=== PATIENT | female | born 1985 | race Caucasian/White ===

== ENCOUNTER → 2019-08-21 12:36 | Outpatient (BNVA) | payer MEDICARE, MEDICAID, SELFPAY | PROVIDERS: Visit Provider Psychiatry & Neurology Psychiatry | DX: G47.00 Insomnia, unspecified (principal); F39 Unspecified mood [affective] disorder; F43.12 Post-traumatic stress disorder, chronic; E61.1 Iron deficiency; G47.09 Other insomnia | CPT/HCPCS: 99205 ==

== ENCOUNTER → 2020-05-10 12:44 | Outpatient (BNVA) | payer MEDICARE, MEDICAID, SELFPAY | PROVIDERS: Visit Provider Registered Nurse | DX: E61.1 Iron deficiency (principal); Z79.899 Other long term (current) drug therapy; Z03.89 Encounter for observation for other suspected diseases and conditions ruled out; F41.9 Anxiety disorder, unspecified | CPT/HCPCS: 80053; 80306; 82306; 83540; 84443; 85025 ==

== ENCOUNTER 2020-05-19 15:17 | Emergency (ER) | payer MEDICARE, SELFPAY ==
[2020-05-19 15:24] VITALS: BP 104/62; PULSE 85; RESP 15; TEMP 36.6; O2SAT 100; BMI 29.2
[2020-05-19 15:39] VITALS: O2SAT 100
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
--- NOTE | 2020-05-19 16:32 | PC.NURSE ---
pt off unit to CT scan by stretcher at this time
[2020-05-19] MEDS: fentaNYL 50 mcg/mL INJ 2mL 75 MCG IVP (16:40)
[2020-05-19 16:43] VITALS: BP 91/61; PULSE 80; O2SAT 99
[2020-05-19] MEDS: orphenadrine 30 mg/mL Inj 2 mL 60 MG IVP (17:44)
[2020-05-19 17:46] VITALS: BP 92/58; PULSE 78; O2SAT 95
[2020-05-19 18:16] VITALS: BP 92/58; PULSE 78; O2SAT 95
== END 2020-05-19 18:16 | disposition home or self-care (01) ==
PROVIDERS: Emergency Provider Family Medicine
DX: S13.4XXA Sprain of ligaments of cervical spine, initial encounter (principal); S29.012A Strain of muscle and tendon of back wall of thorax, initial encounter; S39.012A Strain of muscle, fascia and tendon of lower back, initial encounter; F17.210 Nicotine dependence, cigarettes, uncomplicated; V89.2XXA Person injured in unspecified motor-vehicle accident, traffic, initial encounter
CPT/HCPCS: 72125; 72128; 72131; 96374; 96375; 99283; J2360; J3010

== ENCOUNTER → 2020-11-25 14:50 | Outpatient (BNVA) | payer MEDICARE, MEDICAID, SELFPAY | PROVIDERS: PCP Family Medicine; Visit Provider Emergency Medicine | DX: R53.83 Other fatigue (principal); E61.1 Iron deficiency; B35.1 Tinea unguium; L60.0 Ingrowing nail; Z79.899 Other long term (current) drug therapy | CPT/HCPCS: 82652; 83550; 84443; 85025 ==

== ENCOUNTER → 2020-12-30 09:10 | Outpatient (BNVA) | payer MEDICARE, MEDICAID, SELFPAY | PROVIDERS: PCP Family Medicine; Referring Provider Family Medicine; Visit Provider Anesthesiology Pain Medicine | DX: M54.50 Low back pain, unspecified (principal); F41.9 Anxiety disorder, unspecified; Z79.891 Long term (current) use of opiate analgesic | CPT/HCPCS: 99204 ==

== ENCOUNTER 2021-01-12 13:55 | Outpatient (CLI) | payer MEDICARE, MEDICAID, SELFPAY ==
--- NOTE | 2021-01-12 13:00 | XR_ITS ---
WS: [id number] LUMBAR SPINE: 3 VIEWS TECHNIQUE: AP, lateral and L5-S1 spot. HISTORY: M47.816 - Spondylosis without myelopathy or radiculopathy... COMPARISON: 05/19/2020. Lumbar vertebra are normally aligned. Very mild anterior wedging of L1 and L4. This mild anterior wedging has been previously described. No new fractures. No progression of fractures. Pedicles are all identified. No foraminal stenosis. SI joints are symmetric bilaterally. No soft tissue abnormalities. XR/XR lumbar spine min 4V [id number] IMPRESSION: 1. Stable very mild anterior wedging of L1 and L4. 2. Otherwise negative. No significant facet arthritis.
== END 2021-01-12 13:56 | disposition home or self-care (01) ==
PROVIDERS: PCP Family Medicine; Visit Provider Anesthesiology Pain Medicine
DX: M47.816 Spondylosis without myelopathy or radiculopathy, lumbar region (principal); M48.56XA Collapsed vertebra, not elsewhere classified, lumbar region, initial encounter for fracture
CPT/HCPCS: 72110

== ENCOUNTER → 2021-01-26 09:08 | Outpatient (BNVA) | payer MEDICARE, MEDICAID, SELFPAY | PROVIDERS: PCP Family Medicine; Visit Provider Anesthesiology Pain Medicine | DX: G89.29 Other chronic pain (principal); M54.50 Low back pain, unspecified | CPT/HCPCS: 99214 ==

== ENCOUNTER 2023-12-22 04:01 | Inpatient (IN) | payer MEDICARE, MEDICAID, SELFPAY ==
[2023-12-22] VITALS (51 sets, daily range): BP systolic 85–121; BP diastolic 52–96; PULSE 63–112; RESP 12–24; TEMP 36.3–37.5; O2SAT 22–100; BMI 25.0; BMI 23.6
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
[2023-12-22] MEDS: sodium chloride 0.9% 1,000 ML 999 ML IV (04:29)
[2023-12-22] MEDS: SUMAtriptan 6 mg/0.5 mL SDV SUBCUT (04:29)
[2023-12-22 04:35] LABS: HCG Qualitative Urine. Negative (Negative)
[2023-12-22 04:45] LABS: Bacteria Urine 1+ /hpf; Hyaline Casts Urine 2.46 /lpf; RBC Urine 0-2 /hpf (0-2); WBC Urine 0-5 /hpf (0-5)
[2023-12-22 04:47] LABS: Amphetamines Screen Urine Negative (Negative); Barbiturates Screen Urine Negative (Negative); Benzodiazepines Screen Urine Positive (Negative); Cocaine Screen Urine Negative (Negative); Opiate Screen Urine Negative (Negative); PCP Screen Urine Negative (Negative); THC Screen Urine Positive (Negative)
[2023-12-22 05:02] LABS: Basophils % 0.3 %; Eosinophils % 0.1 %; Hematocrit 41.4 % (36-47); Lymphocytes # 1.3 10^3/uL (0.8-4.8); Lymphocytes % 9.4 %; Mean Corpuscular HGB Conc 33.6 g/dL (30-55); Mean Corpuscular Hemoglobin 30.3 pg (27-33); Mean Corpuscular Volume 90.2 fl (85-98); Mean Platelet Volume 10.6 fL (7.4-10.4); Monocytes # 0.5 10^3/uL (0.2-0.9); Monocytes % 3.5 %; Neutrophils # 11.96 10^3/uL (1.8-7.7); Neutrophils % 86.3 %; Nucleated Red Blood Cells % 0 %; Platelet Count 280 10^3/cmm (157-399); Red Blood Count 4.59 10^6/uL (3.85-5.65); Red Cell Distribution Width 15.3 % (12.1-15.1); White Blood Count 13.86 10^3/uL (3.29-11.43)
[2023-12-22 05:15] LABS: Add Urine Microscopic? YES; Bilirubin Urine Negative (Negative); Blood Urine Negative (Negative); Glucose Urine UA Negative (Normal); Ketones Urine 2+ (Negative); Leukocyte Esterase Urine Negative (Negative); Nitrate Urine Negative (Negative); Protein Urine 1+ (Negative); Specific Gravity, Urine 1.023 (1.005-1.030); Urine Appearance Clear (CLEAR); Urine Color Yellow (Yellow); pH Urine 5.5 (5-7)
[2023-12-22 05:24] LABS: Alanine Aminotransferase 12 U/L (0-33); Albumin Level 4.2 g/dL (3.5-5.2); Alkaline Phosphatase 82 U/L (35-105); Anion Gap 18.9 (5-19); Aspartate Amino Transferase 22 U/L (0-32); Blood Urea Nitrogen 18 mg/dL (6-20); Calcium 7.6 mg/dL (8.5-10.5); Carbon Dioxide 15 mmol/L (22-29); Chloride 111 mmol/L (98-107); Creatinine Clr Calc Pharmacy 67.2315; Globulin 2.3 g/dL (1.3-4.6); Glomerular Filtration Rate 55.6 mL/min (90-130); Glucose 105 mg/dL (65-115); Osmolality Calculated 294 mOsm/kg (285-295); Potassium 3.9 mmol/L (3.5-5.1); Sodium 141 mmol/L (136-145); Total Bilirubin 0.2 mg/dL (0.15-1.2); Total Protein 6.5 g/dL (6.6-8.7)
[2023-12-22 05:27] LABS: Acetaminophen < 5.0 ug/mL (10-30); Alcohol Level < 10 mg/dL (0-10)
[2023-12-22 05:30] LABS: Salicylate 55.5 mg/dL (3-10)
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
[2023-12-22 06:33] LABS: ABG PH Result 7.38 (7.35-7.45); Alveolar-Arterial Oxygen Gradi 3.2 mmHg (5-10); Base Excess ABG -8.1 mmol/L (-2.0-2.0); Blood Gas Operator Identificat SAM; Blood Gas Sample Site Brachial, right; Blood Gas Sample Type Arterial; Carboxyhemoglobin 0.8 %THgb (0.4-20.1); HCO3 ABG 15.4 mmol/L (22-26); HGB O2 Sat 94.9 % (95-100); Ionized Calcium Level - ABG 1.1 mmol/L (1.1-1.4); Methemoglobin 1.4 % (0.4-1.5); PO2 ABG 91.4 mmHg (80.0-100.0); Potassium Level - ABG 3.2 mmol/L (3.5-5.0); Total Hemoglobin 12.7 g/dL (12-16)
--- NOTE | 2023-12-22 06:35 | PC.NURSE ---
RN called poison control. Instructions were to start dialysis, order abg, monitor potassium every 4-6 hours, start dextrose 10%. Poison control faxed some instructions, Dr reviewed and placed in pt chart.
[2023-12-22] MEDS: lactated ringers 500 ML 999 ML IV (07:29)
--- NOTE | 2023-12-22 07:30 | PC.NURSE ---
pt from er here 2 amps bicarb , preparing for dialysis cath permit done time out right groin area bicarb gtt started
[2023-12-22] MEDS: pantoprazole 40 mg SDV IVP ×2 (07:31→17:56)
[2023-12-22] MEDS: sodium bicarbonate 8.4% 1 mEq/mL 50mL Syr 100 MEQ IVP (07:45)
--- NOTE | 2023-12-22 07:54 | PM.CONSULT ---
Providers/Reason For Consult Consulting Physician/Specialty*: [facility] /Nephrology Reason for Consult*: TAMANNA, salicylate toxicity Attending Physician: Adryan Manuel MD Primary Care Provider: Jame Hobbs History of Present Illness History of Present Illness Krissy Simon is a 38 year old female -year-old female with past medical history of depression posttraumatic stress disorder, chronic back pain presented to the emergency department due to generalized weakness, malaise, nausea vomiting decreased p.o. intake and generalized feeling of unwell. Also complained of having headaches. On further questioning she reported taking about 15-20 aspirin pills per day over the last few months and also taking BC powder for pains and aches. In the emergency department she was noted to be tachycardic, lab data significant for TAMANNA with a creatinine of 1.1 metabolic acidosis with a bicarbonate of 15. And patient salicylate level was elevated at 55. Poison control was called from the emergency department who recommended dialysis. Patient has temporary HD catheter placed and currently getting dialysis. Unable to provide further history to me at this time. Patient denied having any suicidal ideation Review of Systems Narrative: negative Medications/Allergies Home Medications Medication Instructions Recorded Confirmed Last Taken Type sumatriptan succinate 50 mg tablet 50 mg PO Q2H PRN migraine headache 08/26/20 11/07/21 Unknown Rx (Imitrex) #9 tabs gabapentin 300 mg capsule 300 mg PO BID #60 caps 11/07/21 11/07/21 Unknown Rx mirtazapine 15 mg tablet (Remeron) 15 mg PO .HS #30 tabs 11/07/21 11/07/21 Unknown Rx Allergies Allergy/AdvReac Type Severity Reaction Status Date / Time NSAIDS (Non-Steroidal Allergy Heart Verified 11/07/21 12:59 Anti-Inflamma flutters Current Medications Generic Name Dose Route Start Last Admin Trade Name Freq PRN Reason Stop Dose Admin Pantoprazole Sodium 40 mg 12/22/23 07:24 12/22/23 07:31 Pantoprazole 40 Mg Sdv IVP 40 mg Q12H HYUN Administration PFSH Acute PFSH: Medical History Benzodiazepine dependence Anxiety Depression Migraine Iron deficiency Social History Smoking and tobacco/nicotine status: current every day tobacco/nicotine user cigarettes Packs smoked per day: 0.25 Years cigarettes smoked: 20 Quit status (tobacco/nicotine): has tried quititng Alcohol intake: never Substance/Drug Use: former Date of last use: 2019 Current gender identity: Female Vitals/I&O/Wt Last Vital Signs Temp 97.6 F 12/22/23 07:30 Pulse 100 12/22/23 07:35 Resp 19 H 12/22/23 07:35 BP 88/75 12/22/23 07:35 Pulse Ox 97 12/22/23 07:35 O2 Del Method Room Air 12/22/23 07:35 12/21/23 12/22/23 12/22/23 22:59 06:59 14:59 Intake Total 1000 / 1000 Balance 1000 / 1000 Weight last 48 hrs Weight 64.41 kg Weight 68.039 kg Physical Exam Narrative: awake , alert Heent S1S2 RRR per report Lungs clear per report No edema Data 12/22/23 04:58 12/22/23 04:58 A&P Assessment and plan (1) Salicylate overdose: 1. Acute salicylate overdose: Salicylate level was 55 on presentation, plan for emergent HD, femoral catheter placed and HD initiated, continue to monitor salicylate levels and likely will repeat HD tomorrow. 2. Respiratory alkalosis and metabolic acidosis likely from salicylate overdose, plan as above-continue bicarbonate drip 3. History of depression 4. TAMANNA: Mild, due to poor p.o. intake, NSAIDs and salicylate overdose-continue IV fluids Patient evaluated using audiovisual cart. Time spent 40 minutes. Qualifiers: Encounter type: initial encounter Injury intent: accidental or unintentional Qualified Code(s): T39.091A - Poisoning by salicylates, accidental (unintentional), initial encounter Consult Attestations Medical Necessity Statement: per marleny Coding Level of Care Code Acute Code for [facility] Fwd Diagnoses Salicylate overdose T39.091A Encounter type: initial encounter Injury intent: accidental or unintentional
[2023-12-22] MEDS: sodium bicarbonate 150 MEQ in dextrose 5% 1,000 ML 100 MEQ IV (08:15)
[2023-12-22] MEDS: lidocaine 2% INJ 20 mL 10 ML INJECTION ×2 (08:35→09:37)
--- NOTE | 2023-12-22 08:44 | P.CONIM_ITS ---
Providers/Reason For Consult 2 Consulting Physician/Specialty*: General Surgery Reason for Consult*: Need for dialysis Attending Physician: Adryan Manuel MD Primary Care Provider: Jame Hobbs History of Present Illness History of Present Illness Krissy Simon is a 38 year old female who presented to the ED with salicylate toxicity, after discussion with poison control patient was recommended to proceed with dialysis. On evaluation of the bedside she was alert and oriented no significant mental status changes at this time she did have some episodes of vomit does not complain of abdominal pain does have a headache. Review of Systems 2 General: Reports: 10 or more systems reviewed and unremarkable except in HPI and below Medications/Allergies Home Medications Medication Instructions Recorded Confirmed Last Taken Type sumatriptan succinate 50 mg tablet 50 mg PO Q2H PRN migraine headache 08/26/20 11/07/21 Unknown Rx (Imitrex) #9 tabs gabapentin 300 mg capsule 300 mg PO BID #60 caps 11/07/21 11/07/21 Unknown Rx mirtazapine 15 mg tablet (Remeron) 15 mg PO .HS #30 tabs 11/07/21 11/07/21 Unknown Rx Allergies Allergy/AdvReac Type Severity Reaction Status Date / Time NSAIDS (Non-Steroidal Allergy Heart Verified 11/07/21 12:59 Anti-Inflamma flutters Current Medications Generic Name Dose Route Start Last Admin Trade Name Freq PRN Reason Stop Dose Admin Sodium Bicarbonate 150 meq/ 1,150 mls @ 100 mls/hr 12/22/23 08:30 12/22/23 08:15 Dextrose IV 100 mls/hr .[id number] HYUN Administration Lidocaine HCl 10 ml 12/22/23 08:45 12/22/23 08:35 Lidocaine 2% Inj 20 Ml INJECTION 12/22/23 08:46 10 ml ONCE ONE Administration Protocol Pantoprazole Sodium 40 mg 12/22/23 07:24 12/22/23 07:31 Pantoprazole 40 Mg Sdv IVP 40 mg Q12H HYUN Administration PFSH Acute 2 PFSH: Medical History Benzodiazepine dependence Anxiety Depression Migraine Iron deficiency Social History Smoking and tobacco/nicotine status: current every day tobacco/nicotine user cigarettes Packs smoked per day: 0.25 Years cigarettes smoked: 20 Quit status (tobacco/nicotine): has tried quititng Alcohol intake: never Substance/Drug Use: former Date of last use: 2019 Current gender identity: Female Vitals/I&O/Wt Last Vital Signs Temp 97.3 F L 12/22/23 08:00 Pulse 104 H 12/22/23 08:00 Resp 17 12/22/23 08:00 BP 111/68 12/22/23 08:00 Pulse Ox 98 12/22/23 08:00 O2 Del Method Room Air 12/22/23 07:41 12/21/23 12/22/23 12/22/23 22:59 06:59 14:59 Intake Total 1000 / 1000 Balance 1000 / 1000 Weight last 48 hrs Weight 142 lb Weight 150 lb Physical Exam 2 Narrative: General : Patient is well developed , no acute distress, oriented x3 Head : Normal cephalic, a-traumatic. Nose : Mucous membranes are without erythema. Lungs : Equal chest rise bilaterally, no use of accessory muscles, trachea is midline. CV : Rate and rhythm are normal. Abdomen : Soft, ND, NT, no g/r/m Extremities : No edema. Upper extremities are normal bilaterally. Back : non-tender to palpation, no CVA tenderness. Data 12/22/23 04:58 12/22/23 04:58 A&P Assessment and plan (1) Salicylate overdose: Qualifiers: Encounter type: initial encounter Injury intent: accidental or unintentional Qualified Code(s): T39.091A - Poisoning by salicylates, accidental (unintentional), initial encounter Plan After complete history, physical examination and review of all available clinical data I decided to offer the patient placement of a temporary dialysis catheter. I discussed all risk benefits including injury to surrounding structures, need to catheter replacement, bloodstream infection, localized infection, bleeding, pneumothorax, injury to the intra-abdominal viscera in the case of a femoral catheter, cannulation of the artery rather than the pain, nerve damage. Patient shows understanding agrees with the procedure. I did right femoral vein dialysis catheter placement, this was done without complications patient remained stable in the ICU after the procedure. -Patient can proceed with dialysis as needed. Coding Level of Care Code 27985 Diagnoses Salicylate overdose T39.091A Encounter type: initial encounter Injury intent: accidental or unintentional
--- NOTE | 2023-12-22 08:48 | PM.ACPR ---
Procedure/Consent Time out: Time Out Performed: Yes Consent: Consent for Procedure: Consent obtained from patient, Risks & Benefits reviewed and Agrees to proceed with procedure Procedure Narrative: She was placed in a supine position, timeout was conducted. The right groin was prepped and draped in usual sterile fashion as this was noted to be a suitable target for cannulation. I then proceeded to identify the right femoral vein, local anesthesia was infiltrated on top, I then cannulated the right femoral vein with 18-gauge needle under ultrasound guidance, and a wire was advanced. The needle was removed leaving the wire in place. Position of the wire was ensured with ultrasound guidance. 5 mm incision was made on the level of the wire insertion site on the skin, the tract was dilated with sequential sizes of dilators. The catheter was then advanced into the pain over the wire, the catheter was left in place and the wire was removed. Patency of both of the lumens were tested with saline and both lumens were noted to be drawing and flushing with no problems. The catheter was then fixed to the tissue with number was held. Sterile dressing was applied. At the end of the procedure counts were correct the patient tolerated well the procedure and remained in the ICU in stable condition Acute Procedures Epistaxis Control: Time out performed: Yes
[2023-12-22] MEDS: heparin, porcine 1,000 unit/mL INJ 10 mL 1000 UNIT IV (09:01)
--- NOTE | 2023-12-22 09:07 | W.PM.EVENTAC ---
Event Note Event Note: Patient is awake and alert Getting temporary dialysis catheter She will be dialyzed today I have added bicarb drip Continue IV fluids Repeat BMP after dialysis today She is acidotic Not confused at all No focal deficit Hemodynamically stable
[2023-12-22] MEDS: oxyCODONE 5 mg IR Tab/Cap PO ×3 (09:31→22:02)
[2023-12-22] MEDS: heparin 5,000 unit/mL INJ 1 mL 5000 UNIT SUBCUT ×2 (09:31→22:03)
[2023-12-22] MEDS: albumin 12.5 GM/50 ML VIAL IV (09:51)
[2023-12-22 10:04] LABS: Hepatitis B Core AB, Total Non-Reactive (Nonreactive); Hepatitis B Surface AB < 3.5 (11.5-1000); Hepatitis B Surface Antigen Non-Reactive (Nonreactive)
[2023-12-22] MEDS: SUMAtriptan 25 mg Tablet 50 MG PO (11:50)
--- NOTE | 2023-12-22 13:10 | PC.NURSE ---
continued nausea and head ache imetrex po given recieving dialysis now complete lab ordered post
--- NOTE | 2023-12-22 13:15 | PC.NURSE ---
Dressing on left lower extremity changed at this time. applied 4x4, betadine, stocknet dressing, and coband. yellow drainage noted. pt tolerated well.
[2023-12-22 13:46] LABS: Anion Gap 18.6 (5-19); Blood Urea Nitrogen 5 mg/dL (6-20); Calcium 8.2 mg/dL (8.5-10.5); Carbon Dioxide 25 mmol/L (22-29); Chloride 100 mmol/L (98-107); Creatinine Clr Calc Pharmacy 144.9817; Glomerular Filtration Rate 138.1 mL/min (90-130); Glucose 157 mg/dL (65-115); Osmolality Calculated 293 mOsm/kg (285-295); Salicylate 13.5 mg/dL (3-10); Sodium 141 mmol/L (136-145)
[2023-12-22 13:49] LABS: Potassium 2.6 mmol/L (3.5-5.1)
[2023-12-22] MEDS: ondansetron 2 mg/ML SDV 2 mL 4 MG IVP ×2 (14:13→22:01)
[2023-12-22] MEDS: potassium chloride premix 100 ML 25 MEQ IV ×2 (14:13→17:56)
[2023-12-22 14:29] LABS: Salicylate 11.8 mg/dL (3-10)
[2023-12-22] MEDS: lactated ringers 1,000 ML 75 ML IV (16:28)
--- NOTE | 2023-12-22 18:16 | PC.NURSE ---
pt continues to c/o pain and nausea , states i can not take oxycodone , message sent to doctor has had total 5 to 6 emesis today
[2023-12-22] MEDS: TRAMadol 50 mg Tablet PO (18:49)
[2023-12-22] MEDS: ALPRAZolam 0.5 mg Tablet 1 MG PO (21:16)
[2023-12-22 21:46] LABS: Salicylate 3.8 mg/dL (3-10)
[2023-12-22 22:00] LABS: Alanine Aminotransferase 11 U/L (0-33); Albumin Level 4.1 g/dL (3.5-5.2); Alkaline Phosphatase 74 U/L (35-105); Anion Gap 21.5 (5-19); Aspartate Amino Transferase 19 U/L (0-32); Blood Urea Nitrogen 8 mg/dL (6-20); Calcium 8.2 mg/dL (8.5-10.5); Carbon Dioxide 21 mmol/L (22-29); Chloride 101 mmol/L (98-107); Creatinine Clr Calc Pharmacy 90.6135; Globulin 2.8 g/dL (1.3-4.6); Glomerular Filtration Rate 80.3 mL/min (90-130); Glucose 110 mg/dL (65-115); Osmolality Calculated 289 mOsm/kg (285-295); Potassium 3.5 mmol/L (3.5-5.1); Sodium 140 mmol/L (136-145); Total Bilirubin 0.3 mg/dL (0.15-1.2); Total Protein 6.9 g/dL (6.6-8.7)
[2023-12-22] MEDS: mirtazapine 15 mg Tablet 30 MG PO (22:02)
[2023-12-23] VITALS (27 sets, daily range): BP systolic 91–132; BP diastolic 54–78; PULSE 59–97; RESP 10–28; TEMP 36.3–36.9; O2SAT 96–97
--- NOTE | 2023-12-23 01:39 | PC.NURSE ---
Patient tearful demanding kurtz catheter to be removed. Patient stable to use bed mckee or bsc. Catheter removed after balloon deflated, tip intact.
[2023-12-23] MEDS: lactated ringers 1,000 ML 75 ML IV (05:51)
[2023-12-23] MEDS: ondansetron 2 mg/ML SDV 2 mL 4 MG IVP (05:52)
[2023-12-23] MEDS: oxyCODONE 5 mg IR Tab/Cap PO (05:52)
[2023-12-23] MEDS: pantoprazole 40 mg SDV IVP (06:06)
[2023-12-23 06:43] LABS: Alanine Aminotransferase 11 U/L (0-33); Albumin Level 3.9 g/dL (3.5-5.2); Alkaline Phosphatase 64 U/L (35-105); Anion Gap 15.2 (5-19); Aspartate Amino Transferase 16 U/L (0-32); Blood Urea Nitrogen 9 mg/dL (6-20); Calcium 8.5 mg/dL (8.5-10.5); Carbon Dioxide 22 mmol/L (22-29); Chloride 98 mmol/L (98-107); Creatinine Clr Calc Pharmacy 90.3125; Glomerular Filtration Rate 80.3 mL/min (90-130); Glucose 89 mg/dL (65-115); Osmolality Calculated 272 mOsm/kg (285-295); Potassium 3.2 mmol/L (3.5-5.1); Sodium 132 mmol/L (136-145); Total Bilirubin 0.2 mg/dL (0.15-1.2); Total Protein 5.9 g/dL (6.6-8.7)
[2023-12-23 06:45] LABS: Basophils % 0.2 %; Eosinophils % 0.2 %; Hematocrit 35.1 % (36-47); Lymphocytes # 2.2 10^3/uL (0.8-4.8); Lymphocytes % 24.6 %; Mean Corpuscular HGB Conc 31.9 g/dL (30-55); Mean Corpuscular Hemoglobin 29.9 pg (27-33); Mean Corpuscular Volume 93.6 fl (85-98); Mean Platelet Volume 11.1 fL (7.4-10.4); Monocytes # 0.8 10^3/uL (0.2-0.9); Monocytes % 8.8 %; Neutrophils # 5.79 10^3/uL (1.8-7.7); Neutrophils % 65.6 %; Nucleated Red Blood Cells % 0 %; Platelet Count 259 10^3/cmm (157-399); Red Blood Count 3.75 10^6/uL (3.85-5.65); Red Cell Distribution Width 15.2 % (12.1-15.1); White Blood Count 8.83 10^3/uL (3.29-11.43)
[2023-12-23 06:57] LABS: Salicylate < 0.3 mg/dL (3-10)
--- NOTE | 2023-12-23 07:08 | P.PN_ITS ---
Subjective 2 Subjective: Seen and examined. No shortness of breath. Still with nausea and vomiting. And has headaches states she gets migraines. She states she took a lot of aspirin as she has 2 pains from an implant. She is not suicidal she states. Medications: Reviewed: Yes Medication Review Details: Current Medications Acetaminophen (Acetaminophen 325 Mg Tablet) 650 mg PO Q6H PRN PRN Reason: Mild/Mod Pain Or Temp >/= 101 Alprazolam (Alprazolam 0.5 Mg Tablet) 1 mg PO TID PRN PRN Reason: ANXIETY Last Admin: 12/22/23 21:16 Dose: 1 mg Heparin Sodium (Porcine) (Heparin 5,000 Unit/Ml Inj 1 Ml) 5,000 unit SUBCUT Q12H [facility] Last Admin: 12/22/23 22:03 Dose: 5,000 unit Dextrose (D10w) 250 mls @ 1,000 mls/hr IV PRN PRN PRN Reason: HYPOGLYCEMIA Sodium Chloride (Sodium Chloride 0.9%) 1,000 mls @ 0 mls/hr IV .Q0M PRN PRN Reason: hypotension or symptomatic Albumin Human (Albumin) 12.5 gm in 50 mls @ 60 mls/hr IV PRN PRN PRN Reason: Hypotension and/or symptomatic Last Infusion: 12/22/23 10:27 Dose: Infused Lactated Ringer's (Lactated Ringers) 1,000 mls @ 75 mls/hr IV .[id number] [facility] Last Admin: 12/23/23 05:51 Dose: 75 mls/hr Mirtazapine (Mirtazapine 15 Mg Tablet) 30 mg PO BEDTIME [facility] Last Admin: 12/22/23 22:02 Dose: 30 mg Ondansetron HCl (Ondansetron 2 Mg/Ml Sdv 2 Ml) 4 mg IVP Q8H PRN PRN Reason: vomiting, or N/V if npo Last Admin: 12/23/23 05:52 Dose: 4 mg Oxycodone HCl (Oxycodone 5 Mg Ir Tab/Cap) 5 mg PO Q6H PRN PRN Reason: MODERATE PAIN Last Admin: 12/23/23 05:52 Dose: 5 mg Pantoprazole Sodium (Pantoprazole 40 Mg Sdv) 40 mg IVP Q12H [facility] Last Admin: 12/23/23 06:06 Dose: 40 mg Sumatriptan Succinate (Sumatriptan 25 Mg Tablet) 50 mg PO Q2H PRN PRN Reason: migraine headache Last Admin: 12/22/23 11:50 Dose: 50 mg Vitals/I&O/Wt Last Vital Signs Temp 98.4 F 12/23/23 00:30 Pulse 83 12/23/23 06:00 Resp 18 12/23/23 05:52 BP 118/78 12/23/23 04:00 Pulse Ox 97 12/23/23 05:52 O2 Del Method Room Air 12/23/23 04:00 12/22/23 12/23/23 12/23/23 22:59 06:59 14:59 Intake Total 1442.917 / 2642.917 1000 / 3642.917 Output Total 1000 / 2771 200 / 2971 Balance 442.917 / -128.083 800 / 671.917 Weight last 48 hrs Weight 64.5 kg Weight 65 kg Weight 64.41 kg Weight 68.039 kg Physical Exam 2 Narrative: Vital signs stable in bed no apparent distress. HEENT normocephalic atraumatic. Neck is supple no JVP no carotid bruits. Lungs are clear to auscultation. Heart is regular without rubs or gallops. Abdomen is soft positive bowel sounds extremities have no significant edema no clubbing. Neurologically awake and alert oriented x 3. ext no edema. + rt femoral dialysis catheter Urinary Catheter Management: [place]: Cath Placed During This Visit: yes Reason for Continuing Indwelling Catheter: Accurate Measurement of Urinary Output in Critically Ill Patients Urinary Catheter Date of Insertion: 12/22/23 Urinary Catheter Time of Insertion: 09:27 Data 12/23/23 06:10 12/23/23 06:10 A&P Assessment and plan (1) Salicylate overdose: 38-year-old lady here with salicylate toxicity. Salicylate level is now undetectable after dialysis yesterday. Repeat salicylate level at noon to ensure that it is really low. Salicylate normal remains normal she does not need any further dialysis. Replace potassium. I advised the patient not to use NSAIDs or salicylates or overdose on medications and to try to deal with her tooth problems. Blood pressure acceptable Medications reviewed Qualifiers: Encounter type: initial encounter Injury intent: accidental or unintentional Qualified Code(s): T39.091A - Poisoning by salicylates, accidental (unintentional), initial encounter Plan See above. No further salicylate use. Check repeat salicylate level at noon. The salicylate level remains normal DC dialysis catheter Attestations 2 Medical Necessity Statement*: Per hospitalist. Time Spent in Patient Care: 16 - 35 minutes (>than 50% of time sp ent in counselling and/or direct pt care on unit) . Coding [facility] T39.091A Encounter type: initial encounter Injury intent: accidental or unintentional
[2023-12-23] MEDS: heparin 5,000 unit/mL INJ 1 mL 5000 UNIT SUBCUT (08:59)
[2023-12-23] MEDS: gabapentin 300 mg Capsule PO (10:42)
[2023-12-23] MEDS: ALPRAZolam 0.5 mg Tablet 1 MG PO (10:42)
--- NOTE | 2023-12-23 13:10 | PM.DCS ---
Discharge Providers Date of Admission: 12/22/23 06:24 Date of Discharge: December 23, 2023 Attending Provider at Admission: Sumit Jarrell Attending Provider at Discharge: Adryan Manuel MD Primary Care Provider: Jame Hobbs Diagnoses at Discharge Discharge Diagnosis (1) Salicylate overdose: Status: Acute Qualifiers: Encounter type: initial encounter Injury intent: accidental or unintentional Qualified Code(s): T39.091A - Poisoning by salicylates, accidental (unintentional), initial encounter Reason for Visit Reason for Visit: N/V/D Hospital Course Hospital Course 38-year-old female who presented to the hospital with vomiting generalized weakness patient was diagnosed with salicylate poisoning because she was taking 15 to 20 tablets of aspirin on daily basis for her dental pain. Patient has seen her dentist and has been referred to oromaxillary surgeon in [place]. In the hospital with her levels were above 55, Poison control was contacted, immediate steps were taken to put her on predialysis catheter and dialyze her, levels improved, she remained hemodynamically stable, her vomiting has improved, she still endorsing nausea, no signs of abnormal transaminases, no signs of acidosis, electrolytes replenished. No leukocytosis. Patient is not suicidal. She required opioids and Imitrex for her headache. I do believe she has NSAID withdrawal related pain along migraine. Physical Exam Narrative: Pleasant young female Pleasant cooperative Nonfocal neuroexam S1, S2 On room air Urinary Catheter Management: [place]: Cath Placed During This Visit: yes Reason for Continuing Indwelling Catheter: Accurate Measurement of Urinary Output in Critically Ill Patients Urinary Catheter Date of Insertion: 12/22/23 Urinary Catheter Time of Insertion: 09:27 Discharge Data Studies Completed and Pending Completed Studies During Hospitalization Category Date Time Status XR chest 1V portable [id number] Stat Exams 12/22/23 04:09 Completed Pending at discharge Category Date Time Status Complete Blood Count w/Auto AM LABS Lab 12/24/23 04:00 Ordered Complete Blood Count w/Auto AM LABS Lab 12/25/23 04:00 Ordered Comprehensive Metabolic Panel AM LABS Lab 12/24/23 04:00 Ordered Comprehensive Metabolic Panel AM LABS Lab 12/25/23 04:00 Ordered Salicylate Stat Lab 12/23/23 12:45 Ordered Radiology Impressions Chest X-Ray 12/22/23 04:09 IMPRESSION: No acute findings. Laboratory Results WBC 8.83 10^3/uL (3.29-11.43) 12/23/23 06:10 RBC 3.75 10^6/uL (3.85-5.65) L 12/23/23 06:10 Hgb 11.20 g/dL (11.27-16.99) L 12/23/23 06:10 Hct 35.1 % (36-47) L 12/23/23 06:10 MCV 93.6 fl (85-98) 12/23/23 06:10 MCH 29.9 pg (27-33) 12/23/23 06:10 MCHC 31.9 g/dL (30-55) D 12/23/23 06:10 RDW 15.2 % (12.1-15.1) H 12/23/23 06:10 Plt Count 259 10^3/cmm (157-399) 12/23/23 06:10 MPV 11.1 fL (7.4-10.4) H 12/23/23 06:10 Neut % (Auto) 65.6 % 12/23/23 06:10 Lymph % (Auto) 24.6 % 12/23/23 06:10 [place] % (Auto) 8.8 % 12/23/23 06:10 Eos % (Auto) 0.2 % 12/23/23 06:10 Baso % (Auto) 0.2 % 12/23/23 06:10 Neut # (Auto) 5.79 10^3/uL (1.8-7.7) 12/23/23 06:10 Lymph # (Auto) 2.2 10^3/uL (0.8-4.8) 12/23/23 06:10 [place] # (Auto) 0.8 10^3/uL (0.2-0.9) 12/23/23 06:10 Eos # (Auto) 0.0 10^3/uL (0.0-0.8) 12/23/23 06:10 Baso # (Auto) 0.0 10^3/uL (0.0-0.1) 12/23/23 06:10 Nucleated RBC % (auto) 0 % 12/23/23 06:10 Nucleated RBCs # 0.0 /100WBC 12/23/23 06:10 Specimen Type Arterial 12/22/23 06:22 Sample Site Brachial, right 12/22/23 06:22 ABG pH 7.38 (7.35-7.45) 12/22/23 06:22 ABG pCO2 26.0 mmHg (35-45) L 12/22/23 06:22 ABG pO2 91.4 mmHg (80.0-100.0) 12/22/23 06:22 ABG HCO3 15.4 mmol/L (22-26) L 12/22/23 06:22 ABG O2 Saturation 97.0 12/22/23 06:22 ABG Base Excess -8.1 mmol/L (-2.0-2.0) L 12/22/23 06:22 Abran Test N/a 12/22/23 06:22 A-a O2 Gradient 3.2 mmHg (5-10) L 12/22/23 06:22 Hematocrit 39.0 % (37-47) 12/22/23 06:22 Hgb O2 Saturation 94.9 % (95-100) L 12/22/23 06:22 Carboxyhemoglobin 0.8 %THgb (0.4-20.1) 12/22/23 06:22 Methemoglobin 1.4 % (0.4-1.5) 12/22/23 06:22 Total Hemoglobin 12.7 g/dL (12-16) 12/22/23 06:22 Sodium 138.0 mmol/L (131-143) 12/22/23 06:22 Potassium 3.2 mmol/L (3.5-5.0) L 12/22/23 06:22 Glucose 260.0 mg/dL (70-115) H 12/22/23 06:22 Ionized Calcium 1.1 mmol/L (1.1-1.4) 12/22/23 06:22 O2 Delivery Device None 12/22/23 06:22 [employer] [place] [employer] ID Jorge L 12/22/23 06:22 Sodium 132 mmol/L (136-145) L 12/23/23 06:10 Potassium 3.2 mmol/L (3.5-5.1) L 12/23/23 06:10 Chloride 98 mmol/L (98-107) 12/23/23 06:10 Carbon Dioxide 22 mmol/L (22-29) 12/23/23 06:10 Anion Gap 15.2 (5-19) 12/23/23 06:10 BUN 9 mg/dL (6-20) 12/23/23 06:10 Creatinine 0.8 mg/dL (0.5-0.9) 12/23/23 06:10 GFR Calculation 80.3 mL/min (90-130) L 12/23/23 06:10 Glucose 89 mg/dL (65-115) 12/23/23 06:10 Calculated Osmolality 272 mOsm/kg (285-295) L 12/23/23 06:10 Calcium 8.5 mg/dL (8.5-10.5) 12/23/23 06:10 Magnesium 2.0 mg/dL (1.7-2.3) 12/22/23 04:58 Total Bilirubin 0.2 mg/dL (0.15-1.2) 12/23/23 06:10 AST 16 U/L (0-32) 12/23/23 06:10 ALT 11 U/L (0-33) 12/23/23 06:10 Alkaline Phosphatase 64 U/L (35-105) 12/23/23 06:10 Total Protein 5.9 g/dL (6.6-8.7) L 12/23/23 06:10 Albumin 3.9 g/dL (3.5-5.2) 12/23/23 06:10 Globulin 2.0 g/dL (1.3-4.6) 12/23/23 06:10 HCG, Qual Negative (Negative) 12/22/23 04:30 Urine Color Yellow (Yellow) 12/22/23 04:30 Urine Appearance Clear (CLEAR) 12/22/23 04:30 Urine pH 5.5 (5-7) 12/22/23 04:30 Ur Specific [place] 1.023 (1.005-1.030) 12/22/23 04:30 Urine Protein 1+ (Negative) A 12/22/23 04:30 Urine Glucose (UA) Negative (Normal) 12/22/23 04:30 Urine Ketones 2+ (Negative) H 12/22/23 04:30 Urine Blood Negative (Negative) 12/22/23 04:30 Urine Nitrate Negative (Negative) 12/22/23 04:30 Urine Bilirubin Negative (Negative) 12/22/23 04:30 Urine Urobilinogen 1.0 mg/dL (Negative) 12/22/23 04:30 Ur Leukocyte Esterase Negative (Negative) 12/22/23 04:30 Urine RBC 0-2 /hpf (0-2) 12/22/23 04:30 Urine WBC 0-5 /hpf (0-5) 12/22/23 04:30 Ur Squamous Epith Cells 11-20 /hpf (0-5) 12/22/23 04:30 Amorphous Sediment Not Reportable 12/22/23 04:30 Urine Bacteria 1+ /hpf (NONE) H 12/22/23 04:30 Hyaline Casts 2.46 /lpf 12/22/23 04:30 Salicylates < 0.3 mg/dL (3-10) L 12/23/23 06:10 Urine Opiates Screen Negative ng/mL (Negative) 12/22/23 04:30 Acetaminophen < 5.0 ug/mL (10-30) L 12/22/23 04:58 Ur Barbiturates Screen Negative ng/mL (Negative) 12/22/23 04:30 Ur Phencyclidine Scrn Negative ng/mL (Negative) 12/22/23 04:30 Ur Amphetamines Screen Negative ng/mL (Negative) 12/22/23 04:30 U Benzodiazepines Scrn Positive ng/mL (Negative) H 12/22/23 04:30 Urine Cocaine Screen Negative ng/mL (Negative) 12/22/23 04:30 U Marijuana (THC) Screen Positive ng/mL (Negative) H 12/22/23 04:30 Ethyl Alcohol < 10 mg/dL (0-10) 12/22/23 04:58 Hep Bs Antigen Non-reactive (Nonreactive) 12/22/23 09:17 Hep Bs Antibody < 3.5 (11.5-1000) L 12/22/23 09:17 Hep B Core Total Ab Non-reactive (Nonreactive) 12/22/23 09:17 Vitals Last Vital Signs Temp 97.3 F L 12/23/23 08:00 Pulse 80 12/23/23 12:00 Resp 17 12/23/23 12:00 BP 120/72 12/23/23 12:00 Pulse Ox 96 12/23/23 06:00 O2 Del Method Room Air 12/23/23 04:00 Discharge Plan Discharge Patient Disposition: Home Condition: Stable Prescriptions: Continued sumatriptan succinate [Imitrex] 50 mg tablet 50 mg PO Q2H PRN (Reason: migraine headache) Qty: 9 2RF Rx Instructions: do not exceed 2 doses per 24 hrs gabapentin 300 mg capsule 300 mg PO BID Qty: 60 1RF mirtazapine [Remeron] 15 mg tablet 30 PO .HS alprazolam [Xanax] 1 mg Tablet 1 mg PO TID PRN (Reason: Anxiety) Discharge Orders: Discharge Order (Routine); Ordered 12/23/23 Ordered By: Adryan Manuel Referrals: Jame Hobbs [Primary Care Provider] - 1-3 days Discharge Diet: Regular Discharge Activity: Increase activity as tolerated Patient Instructions: Opioid Safety Discharge Attestations Time Spent in Discharge Care*: greater than 30 min Quality Metrics Clinical Quality Measures [ No reported AMI, CVA or VTE this stay] Coding Level of Care Code Acute Code for Chg Fwd Diagnoses Salicylate overdose T39.091A Encounter type: initial encounter Injury intent: accidental or unintentional
[2023-12-23 13:49] LABS: Salicylate < 0.3 mg/dL (3-10)
--- NOTE | 2023-12-23 14:35 | PC.NURSE ---
discharge instuctions given ,significant other in room cautioned both to not let her ambulate much this pm and no lifting anything over 5 pounds and to rest next 24 hr right groin sight no edema transparent dressing in place
== END 2023-12-23 14:38 | disposition home or self-care (01) | DRG 918 ==
LOC: ER 06:24 → ICU 06:46
PROVIDERS: Hospitalist; Internal Medicine; Admitting Provider Internal Medicine; Emergency Provider Emergency Medicine; PCP Family Medicine; Visit Provider Internal Medicine
DX: T39.011A Poisoning by aspirin, accidental (unintentional), initial encounter (principal); N17.9 Acute kidney failure, unspecified; E87.20 Acidosis, unspecified; E87.3 Alkalosis; R53.1 Weakness; R11.2 Nausea with vomiting, unspecified; F41.9 Anxiety disorder, unspecified; F32.A Depression, unspecified; F43.10 Post-traumatic stress disorder, unspecified; G89.29 Other chronic pain; M54.9 Dorsalgia, unspecified; F17.210 Nicotine dependence, cigarettes, uncomplicated; R00.0 Tachycardia, unspecified; G43.909 Migraine, unspecified, not intractable, without status migrainosus; Y92.9 Unspecified place or not applicable
CPT/HCPCS: 36415; 36600; 51702; 71045; 80048; 80051; 80053; 80306; 80307; 81001; 81025; 82330; 82805; 83735; 85025; 86705; 86706; 87340; 90935; 96372; 96374; 96376; 99285; J1644; J2405; J2470; J3030; J3480; J7030; J7070; J7120; P9047; Q3014

== ENCOUNTER 2024-06-17 20:06 | Emergency (ER) | payer MEDICARE, MEDICAID, SELFPAY ==
[2024-06-17 20:09] VITALS: BP 122/86; PULSE 103; TEMP 36.7; O2SAT 98; BMI 24.1
--- NOTE | 2024-06-17 22:09 | XRR_ITS ---
PROCEDURE INFORMATION: Exam: XR Left Knee Exam date and time: 06/17/2024 10:13 PM Age: 39 years old Clinical indication: Injury or trauma; Fall; Blunt trauma; Knee; Left; Additional info: Redness/swelling, recent injury requiring stitches TECHNIQUE: Imaging protocol: Radiologic exam of the left knee. Views: 3 views. COMPARISON: No relevant prior studies available. FINDINGS: Bones/joints: Normal. Soft tissues: Prepatellar soft tissue swelling. XR/XR knee LT 3V* [id number] IMPRESSION: Prepatellar soft tissue swelling without acute fracture or dislocation.
[2024-06-17] MEDS: morphine 4 mg/mL SDV 1 mL IVP (22:33)
[2024-06-17] MEDS: ondansetron 2 mg/ML SDV 2 mL 4 MG IVP (22:33)
[2024-06-17] MEDS: cefTRIAXone 1,000 mg SDV 1000 MG IVP (22:33)
[2024-06-17] MEDS: sodium chloride 0.9% 1,000 ML 999 ML IV (22:37)
[2024-06-17 22:38] LABS: Erythrocyte Sedimentation Rate 5 mm/hr (0-15)
[2024-06-17 22:40] LABS: Basophils % 0.3 %; Eosinophils # 0.1 10^3/uL (0.0-0.8); Eosinophils % 0.7 %; Hematocrit 45.3 % (36-47); Lymphocytes # 1.5 10^3/uL (0.8-4.8); Mean Corpuscular HGB Conc 32.9 g/dL (30-55); Mean Corpuscular Hemoglobin 29.9 pg (27-33); Mean Platelet Volume 10.2 fL (7.4-10.4); Monocytes # 0.8 10^3/uL (0.2-0.9); Monocytes % 5.5 %; Neutrophils # 11.39 10^3/uL (1.8-7.7); Neutrophils % 82.2 %; Nucleated Red Blood Cells % 0 %; Platelet Count 309 10^3/cmm (157-399); Red Blood Count 4.98 10^6/uL (3.85-5.65); Red Cell Distribution Width 14.2 % (12.1-15.1); White Blood Count 13.86 10^3/uL (3.29-11.43)
[2024-06-17 22:53] LABS: Alanine Aminotransferase 11 U/L (0-33); Albumin Level 4.6 g/dL (3.5-5.2); Alkaline Phosphatase 92 U/L (35-105); Aspartate Amino Transferase 15 U/L (0-32); Blood Urea Nitrogen 8 mg/dL (6-20); C Reactive Protein 71.4 mg/L (0.0-4.9); Calcium 9.5 mg/dL (8.5-10.5); Carbon Dioxide 20 mmol/L (22-29); Chloride 99 mmol/L (98-107); Creatinine Clr Calc Pharmacy 91.9985; Globulin 3.5 g/dL (1.3-4.6); Glomerular Filtration Rate 93.2 mL/min (90-130); Glucose 114 mg/dL (65-115); Osmolality Calculated 277 mOsm/kg (285-295); Sodium 134 mmol/L (136-145); Total Bilirubin 0.5 mg/dL (0.15-1.2); Total Protein 8.1 g/dL (6.6-8.7)
[2024-06-17 22:54] LABS: Anion Gap 18.9 (5-19); Potassium 3.9 mmol/L (3.5-5.1)
[2024-06-18 00:04] VITALS: BP 124/78; PULSE 86; RESP 16; O2SAT 97
--- NOTE | 2024-06-18 00:04 | ED_ITS ---
HPI - Extremity Problem 2 General: Chief complaint: Extremity Injury, Lower Stated complaint: n/v, headache, L knee pain Time Seen by Provider: 06/17/24 21:01 Source: patient Mode of arrival: ambulatory Limitations: no limitations History of Present Illness: Patient is a 39-year-old female who presents the emergency department complaining of left knee pain for the past couple days. 2 days ago she injured it and required 11 stitches, states that redness has started to spread and she has pain worsening to the left knee. Also notes he was in chills as well as nausea. She is taking Keflex. No other symptoms reported this time. Afebrile, rest of her vitals unremarkable. No red streaking is reported, no distal neurovascular deficits of the left lower extremity. She notes she has been caring for the wound as she was instructed. MD Complaint: joint swelling and joint pain Onset (ago): day(s) Location: left and knee Exacerbating factors: range of motion, weight bearing and walking Associated symptoms: Reports fever(s); Deny chest pain or rash Context: recent surgery/procedure (Sutures to left knee from a fall) Related Data Home Medications ?Medication ?Instructions ?Recorded ?Confirmed alprazolam 1 mg tablet (Xanax) 1 mg PO TID PRN Anxiety 12/22/23 03/28/24 mirtazapine 15 mg tablet (Remeron) 30 PO .HS 12/22/23 03/28/24 Previous Rx's ?Medication ?Instructions ?Recorded sumatriptan succinate 50 mg tablet 50 mg PO Q2H PRN mi graine headache 08/26/20 (Imitrex) #9 tabs gabapentin 300 mg capsule 300 mg PO BID #60 caps 11/07 doxycycline hyclate 100 mg tablet 100 mg PO BID 10 day s #20 tabs 06/18/24 Allergies Allergy/AdvReac Type Severity Reaction Status Date / Time NSAIDS (Non-Steroidal Allergy Heart Verified 06/17/24 20:15 Anti-Inflamma flutters Review of Systems 2 General: Reports: 10 or more systems reviewed and unremarkable except in HPI and below Const: Reports: fever(s) and chills Card: Denies: chest pain Resp: Denies: dyspnea or productive cough GI: Denies: abdominal pain, nausea, vomiting or diarrhea : Denies: flank pain Musc: Reports: joint pain, joint swelling, joint redness and joint warmth; Denies: neck pain, back pain, extremity pain, extremity swelling, limited range of motion or muscle weakness Skin/Breast: Denies: rash Neuro: Denies: headache(s), numbness in extremities or weakness in extremities PFSH ED 2 PFSH: Medical History Nausea and vomiting Salicylate overdose Benzodiazepine dependence Anxiety Depression Migraine Iron deficiency Family History Denies family history of Colon cancer Ovarian cancer Diabetes Heart disease Breast cancer Hypertension Uterine cancer Thyroid disease Social History Quit status (tobacco/nicotine): has tried quititng Alcohol intake: never Substance/Drug Use: former Date of last use: 2019 Current gender identity: Female Physical Exam 2 Const: COMMON NORMALS: no acute distress, patient oriented x3, no limitations, healthy appearing, alert and well nourished HENMT: COMMON NORMALS: normocephalic and atraumatic HEAD & SCALP: n ormocephalic and atraumatic Neck/C-Spine: COMMON NORMALS: full ROM, supple and no meningeal signs Resp: COMMON NORMALS: normal respiratory effort, No use of accessory muscles and clear to auscultation bilaterally AUSCULTATION: clear to auscultation bilaterally Cardio: COMMON NORMALS: regular rate and regular rhythm RATE: regular rate RHYTHM: regular rhythm Extremity: COMMON NORMALS: full ROM and capillary refill normal NARRATIVE EXTREMITY EXAM: Sutures present to the left knee, there is no active drainage and these do appear to be healing well. However there is a surrounding area of erythema and swelling noted to the left joint, mildly warm to the touch. There is no red streaking noted. Range of motion present, causes pain with flexion at the left knee. Neuro: COMMON NORMALS: patient oriented x3, moves all extremities, no focal motor deficits and no sensory deficits noted SENSORIUM/ORIENTATION: Yes alert MENINGEAL SIGNS: Yes no meningeal signs Skin: COMMON NORMALS: no rashes or lesions noted GENERAL SKIN EXAM: no rashes or lesions noted Course 2 Vital Signs: Vital signs: Vital Signs Temperature 98.0 F 06/17/24 20:09 Pulse Rate 103 H 04/08/25 20:09 Blood Pressure 122/86 06/17/24 20:09 Pulse Oximetry 98 06/17/24 20:09 Oxygen Delivery Me thod Room Air 06/17/24 20:09 MDM - Extremity (Nontraumatic) Medical Decision Making Patient presenting for left knee pain after she injured it 2 days ago, requiring 11 stitches. Redness was initially noted on exam with some warmth and swelling of the left knee, IV was placed she was given pain medications, nausea medications, started on fluids and dose of Rocephin given through IV. Labs obtained, mild elevation in white count and CRP, x-ray showing prepatellar soft tissue swelling indicative of likely cellulitis but there is no extension of this into the bone. Was on Keflex, will switch her to doxycycline however upon recheck already noted is that the redness and swelling has subsided somewhat. Patient also notes that the pain has greatly improved. Because of this we will have her follow-up with regular doctor next couple of days for routine reevaluation and switch to doxycycline. Her tetanus was updated couple days ago. Discharged in stable condition, her vitals have remained normal. Briefly discussed patient with Dr. Pa. Lab Data 06/17/24 22:30 06/17/24 22:30 Radiology Impressions Knee X-Ray 06/17/24 22:09 IMPRESSION: Prepatellar soft tissue swelling without acute fracture or dislocation. Laboratory Results WBC 13.86 10^3/uL (3.29-11.43) H 06/17/24 22:30 RBC 4.98 10^6/uL (3.85-5.65) 06/17/24 22:30 Hgb 14.90 g/dL (11.27-16.99) 06/17/24 22:30 Hct 45.3 % (36-47) 06/17/24 22:30 MCV 91.0 fl (85-98) 06/17/24 22:30 MCH 29.9 pg (27-33) 06/17/24 22:30 MCHC 32.9 g/dL (30-55) 06/17/24 22:30 RDW 14.2 % (12.1-15.1) 06/17/24 22:30 Plt Count 309 10^3/cmm (157-399) 06/17/24 22: MPV 10.2 fL (7.4-10.4) 06/17/24 22: Neut % (Auto) 82.2 % 06/17/24 22: Lymph % (Auto) 11.0 % 06/17/24 22:30 [place] % (Auto) 5.5 % 06/17/24 22:30 Eos % (Auto) 0.7 % 06/17/24: Baso % (Auto) 0.3 % 06/17/24: Neut # (Auto) 11.39 10^3/uL (1.8-7.7) H 06/17/24: Lymph # (Auto) 1.5 10^3/uL (0.8-4.8) 06/17/24: [place] # (Auto) 0.8 10^3/uL (0.2-0.9) 06/17/24: Eos # (Auto) 0.1 10^3/uL (0.0-0.8) 06/17/24: Baso # (Auto) 0.0 10^3/uL (0.0-0.1) 06/17/24: Nucleated RBC % (auto) 0 % 06/17/24: Nucleated RBCs # 0.0 /100WBC 06/17/24: ESR 5 mm/hr (0-15) 06/17/24 22:30 Sodium 134 mmol/L (136-145) L 06/17/24: Potassium 3.9 mmol/L (3.5-5.1) 06/17/24: Chloride 99 mmol/L (98-107) 06/17/24: Carbon Dioxide 20 mmol/L (22-29) L 06/17/24 22: Anion Gap 18.9 (5-19) 06/17/24: BUN 8 mg/dL (6-20) 06/17/24: Creatinine 0.7 mg/dL (0.5-0.9) 06/17/24 22:30 GFR Calculation 93.2 mL/min (90-130) 06/17/24: Glucose 114 mg/dL (65-115) 04/08/25 22:30 Calculated Osmolality 277 mOsm/kg (285-295) L 06/17/24 22:30 Calcium 9.5 mg/dL (8.5-10.5) 06/17/24 22:30 Total Bilirubin 0.5 mg/dL (0.15-1.2) 06/17/24 22:30 AST 15 U/L (0-32) 06/17/24 22:30 ALT 11 U/L (0-33) 06/17/24 22:30 Alkaline Phosphatase 92 U/L (35-105) 06/17/24 22:30 C-Reactive Protein 71.4 mg/L (0.0-4.9) H 06/17/24 22:30 Total Protein 8.1 g/dL (6.6-8.7) 06/17/24 22: Albumin 4.6 g/dL (3.5-5.2) 06/17/24 22:30 Globulin 3.5 g/dL (1.3-4.6) 06/17/24 22:30 All radiology interpretation(s) finalized by discharge Discharge Plan Discharge Patient Disposition: Home Clinical Impression: Cellulitis of knee, left Condition: Stable Prescriptions: New doxycycline hyclate 100 mg tablet 100 mg PO BID 10 Days Qty: 20 0RF No Action sumatriptan succinate [Imitrex] 50 mg tablet 50 mg PO Q2H PRN (Reason: migraine headache) Qty: 9 2RF Rx Instructions: do not exceed 2 doses per 24 hrs gabapentin 300 mg capsule 300 mg PO BID Qty: 60 1RF mirtazapine [Remeron] 15 mg tablet 30 PO .HS alprazolam [Xanax] 1 mg Tablet 1 mg PO TID PRN (Reason: Anxiety) Discharge Orders: Discharge ED (Routine); Ordered 06/18/24 Ordered By: Tony Donovan Referrals: Jame Hobbs [Primary Care Provider] - Patient Instructions: Cellulitis (ED) Activity Restrictions/Additional Instructions: Stop taking Keflex, take doxycycline as prescribed. Follow-up with your regular doctor in the next few days as we discussed. Continue proper wound care at home. Please return with any fevers, worsening or spread of redness, vomiting, or other concerns that you have. Print Language: Tajik Coding Level of Care Code ED Assistant Manager [employer] for Samuel Diop
[2024-06-18] MEDS: SUMAtriptan 25 mg Tablet 50 MG PO (00:45)
[2024-06-18] MEDS: SUMAtriptan 6 mg/0.5 mL SDV (00:45)
--- NOTE | 2024-06-18 00:46 | PC.NURSE ---
Accidentally removed IV sumatriptan. This was returned back to [facility] and not given to pt. Unable to reflect this appropriately in the MAR - see ADMIN NOTE on IVP sumatriptan that states it was not given.
== END 2024-06-18 00:48 | disposition home or self-care (01) ==
PROVIDERS: Emergency Provider Physician Assistant; PCP Family Medicine
DX: L03.116 Cellulitis of left lower limb (principal)
CPT/HCPCS: 73562; 80053; 85025; 85651; 86140; 96361; 96374; 96375; 99284; J0696; J2270; J2405; J3030; J7030; J9999

== ENCOUNTER 2024-08-01 02:02 | Emergency (ER) | payer MEDICARE, SELFPAY ==
[2024-08-01 02:16] VITALS: BP 111/65; PULSE 89; RESP 16; TEMP 36.6; O2SAT 99; BMI 24.3
--- NOTE | 2024-08-01 05:51 | XRR_ITS ---
PROCEDURE INFORMATION: Exam: XR Left Ankle Exam date and time: 08/01/2024 5:58 AM Age: 39 years old Clinical indication: Injury or trauma; Fall; Blunt trauma; Ankle; Left TECHNIQUE: Imaging protocol: Radiologic exam of the left ankle. Views: 3 or more views. COMPARISON: CR (LOW EXM, ) 06/17/2024 10:13 PM FINDINGS: Bones/joints: Normal. Soft tissues: Anterolateral soft tissue swelling. XR/XR ankle LT min 3V* [id number] IMPRESSION: No acute osseous abnormality.
[2024-08-01 05:55] VITALS: RESP 16
[2024-08-01] MEDS: morphine 4 mg/mL SDV 1 mL IM (05:55)
--- NOTE | 2024-08-01 06:14 | XRR_ITS ---
PROCEDURE INFORMATION: Exam: XR Lumbosacral Spine Exam date and time: 08/01/2024 6:22 AM Age: 39 years old Clinical indication: Injury or trauma; Fall; Blunt trauma (contusions or hematomas) TECHNIQUE: Imaging protocol: Radiologic exam of the lumbosacral spine. Views: 2 or 3 views. COMPARISON: CR XR lumbar spine min 4V [id number] 01/12/2021 2:07 PM FINDINGS: Bones/joints: Chronic anterior wedging of L1 and L4 is unchanged and may be developmental or remotely posttraumatic. Remaining lumbar segments have normal height. Intervertebral disc spaces are preserved. Minimal marginal spurring is seen at multiple levels. No acute fracture. Soft tissues: Unremarkable. XR/XR lumbar spine 2-3V* [id number] IMPRESSION: No acute osseous abnormality.
--- NOTE | 2024-08-01 06:25 | W.ED.BACK ---
HPI - Back Pain/Injury General: Chief Complaint: Back Pain/Injury Stated Complaint: Back L jaw and L knee Pain Feel out a car Time Seen by Provider: 08/01/24 05:45 Source: patient Mode of arrival: ambulatory Limitations: no limitations History of Present Illness: 39-year-old female has a history of chronic back pain states she fell out of her vehicle a couple days ago has been having worsening low back pain she states she also has left ankle pain when she fell she denies hitting her head denies any neck pain rates her pain a 7 out of 10 currently she has been ambulatory. Associated symptoms: Deny abdominal pain, chills, fever(s), nausea or vomiting Related Data Home Medications ?Medication ?Instructions ?Recorded ?Confirmed alprazolam 1 mg tablet (Xanax) 1 mg PO TID PRN Anxiety 12/22/23 03/28/24 mirtazapine 15 mg tablet (Remeron) 30 PO .HS 12/22/23 03/28/24 Previous Rx's ?Medication ?Instructions ?Recorded sumatriptan succinate 50 mg tablet 50 mg PO Q2H PRN migraine headache 08/26/20 (Imitrex) #9 tabs gabapentin 300 mg capsule 300 mg PO BID #60 caps 11/07/21 methocarbamol 750 mg tablet 750 mg PO Q6H PRN spasms #20 tabs 08/01/24 Allergies Allergy/AdvReac Type Severity Reaction Status Date / Time NSAIDS (Non-Steroidal Allergy Heart Verified 06/17/24 20:15 Anti-Inflamma flutters Review of Systems Const: Denies: fever(s), chills, body aches or change in appetite ENMT: Denies: throat pain or dental pain Card: Denies: chest pain Resp: Denies: dyspnea GI: Denies: abdominal pain, nausea, vomiting or diarrhea Musc: Reports: back pain; Denies: neck pain Skin/Breast: Denies: rash Neuro: Denies: headache(s) PFSH ED PFSH: Medical History Nausea and vomiting Salicylate overdose Benzodiazepine dependence Anxiety Depression Migraine Iron deficiency Family History Denies family history of Colon cancer Ovarian cancer Diabetes Heart disease Breast cancer Hypertension Uterine cancer Thyroid disease Social History Quit status (tobacco/nicotine): has tried quititng Alcohol intake: never Substance/Drug Use: former Date of last use: 2019 Current gender identity: Female Physical Exam Const: COMMON NORMALS: no acute distress, patient oriented x3 and healthy appearing HENMT: COMMON NORMALS: normocephalic and atraumatic HEAD & SCALP: normocephalic and atraumatic Eye: COMMON NORMALS: conjunctivae normal CONJUNCTIVA: Yes conjunctivae normal Neck/C-Spine: COMMON NORMALS: full ROM and supple Chest: COMMONS NORMALS: normal inspection of the chest Resp: COMMON NORMALS: normal respiratory effort Cardio: COMMON NORMALS: regular rate RATE: regular rate Back/Pelvis: OTHER: Paraspinal tenderness lumbar spine no midline tenderness Extremity: COMMON NORMALS: normal to inspection and full ROM NARRATIVE EXTREMITY EXAM: Slight tenderness left ankle no obvious deformity Neuro: COMMON NORMALS: patient oriented x3, moves all extremities and no focal motor deficits Psych: COMMON NORMALS: mental status grossly normal, Normal thought process present and cooperative THOUGHT PROCESS: Normal thought process present Skin: COMMON NORMALS: no rashes or lesions noted and no wounds GENERAL SKIN EXAM: no rashes or lesions noted Course Vital Signs: Vital signs: Vital Signs Temperature 97.9 F 08/01/24 02:16 Pulse Rate 89 08/01/24 02:16 Respiratory Rate 16 08/01/24 05:55 Blood Pressure 111/65 08/01/24 02:16 Pulse Oximetry 99 08/01/24 02:16 Oxygen Delivery Me thod Room Air 08/01/24 02:16 MDM - Back Pain/Injury Medical Decision Making Patient presents here with low back pain along with ankle pain after fall imaging here is negative she stable for discharge follow-up PCP return if worsening. Medical Records I reviewed the patient's medical records. Labs Radiology Impressions Ankle X-Ray 08/01/24 05:51 IMPRESSION: No acute osseous abnormality. Lumbar Spine X-Ray 08/01/24 06:14 IMPRESSION: No acute osseous abnormality. All radiology interpretation(s) finalized by discharge Discharge Plan Discharge Patient Disposition: Home Clinical Impression: Low back pain, Ankle sprain Condition: Stable Prescriptions: New methocarbamol 750 mg tablet 750 mg PO Q6H PRN (Reason: spasms) Qty: 20 0RF No Action sumatriptan succinate [Imitrex] 50 mg tablet 50 mg PO Q2H PRN (Reason: migraine headache) Qty: 9 2RF Rx Instructions: do not exceed 2 doses per 24 hrs gabapentin 300 mg capsule 300 mg PO BID Qty: 60 1RF mirtazapine [Remeron] 15 mg tablet 30 PO .HS alprazolam [Xanax] 1 mg Tablet 1 mg PO TID PRN (Reason: Anxiety) Discharge Orders: Discharge ED (Routine); Ordered 08/01/24 Ordered By: Reagan Booker Referrals: Jame Hobbs [Primary Care Provider, Family Practice] Discharge Diet: Advance as tolerated Discharge Activity: Resume usual activity Patient Instructions: Back Pain (ED) Print Language: Uzbek Coding Level of Care Code ED [employer]er for Samuel Diop
[2024-08-01 07:04] VITALS: BP 138/79; PULSE 104; O2SAT 99
== END 2024-08-01 07:04 | disposition home or self-care (01) ==
PROVIDERS: Emergency Provider Emergency Medicine; PCP Family Medicine
DX: M54.50 Low back pain, unspecified (principal); G89.29 Other chronic pain; S93.402A Sprain of unspecified ligament of left ankle, initial encounter; V87.8XXA Person injured in other specified noncollision transport accidents involving motor vehicle (traffic), initial encounter
CPT/HCPCS: 72100; 73610; 96372; 99284; J2270